=== PATIENT | female | born 2005 | race Caucasian/White ===

== ENCOUNTER 2024-03-18 15:46 | Emergency (ER) | payer OTHER, SELFPAY ==
[2024-03-18] VITALS (8 sets, daily range): BP systolic 103–134; BP diastolic 56–69; PULSE 70–106; RESP 18; TEMP 37.3; O2SAT 98–100; BMI 25.7
[2024-03-18 16:33] LABS: Add Manual Diff / Slide Review NO; Basophils Absolute Auto 0 /uL (0-100); Basophils Percent Auto 0.3 % (0-2); Eosinophils Absolute Auto 100 /uL (0-450); Eosinophils Percent Auto 1.5 % (2-4); Hematocrit 43.1 % (36-46); Hemoglobin 14.9 g/dL (12.0-16.0); Lymphocytes Absolute Auto 2200 /uL (1100-4500); Lymphocytes Percent Auto 26.2 % (25-40); Mean Corpuscular HGB Conc 34.4 % (30-36); Mean Corpuscular Hemoglobin 31.3 PG (26-34); Monocytes Absolute Auto 600 /uL (0-900); Monocytes Percent Auto 7.7 % (3-14); Neutrophils Absolute Auto 5300 /uL (1500-7000); Neutrophils Percent Auto 64.3 % (50-75); Platelet Count 213 X10^3/uL (150-400); Red Blood Cell Count 4.74 X10^6/uL (4.0-5.2); Red Cell Distribution Width 12.4 % (11.6-14.8); White Blood Cell Count 8.3 X10^3/uL (4.5-11.0)
[2024-03-18 16:45] LABS: Ammonia (NH3) < 9 umol/L (9-30)
[2024-03-18 16:46] LABS: Alanine Aminotransferase 21 IU/L (<35); Albumin 4.7 g/dL (3.5-5.0); Albumin Globulin Ratio 1.5 (1.0-2.8); Alkaline Phosphatase 68 U/L (38-126); Aspartate Aminotransferase 26 IU/L (14-36); BUN Creatinine Ratio 11.6 (6-22); Bilirubin Total 0.9 mg/dL (0.2-1.3); Blood Urea Nitrogen 8 mg/dL (7-17); Calcium 9.2 mg/dL (8.4-10.2); Carbon Dioxide 22 mmol/L (22-32); Chloride 106 mmol/L (98-107); Estimated Glomerular Filt Rate > 60 mL/min (>60); Globulin 3.1 g/dL (1.7-4.1); Glucose 90 mg/dL (70-100); HEMOLYSIS < 15 (0-50); Lipase 40 U/L (23-300); Potassium 3.6 mmol/L (3.4-5.1); Sodium 137 mmol/L (137-145); Total Protein 7.8 g/dL (6.3-8.2)
[2024-03-18 17:07] LABS: Bacteria Urine Many (>30); RBC Urine 0-1/HPF (0-5/HPF); Squamous Epithelial Cell Urine 5-10 /HPF (0-5/HPF); Urine Volume 10mL (spun); WBC Urine 10-30/HPF (0-5/HPF)
--- NOTE | 2024-03-18 21:00 | ED_ITS ---
HPI - Abdominal Pain General Chief Complaint: Abdominal Pain Stated Complaint: abd px, UTI sent by [facility] Time Seen by Provider: 03/18/24 20:52 Source: patient Mode of arrival: Ambulatory History of Present Illness HPI narrative: 18-year-old female with a history of hypothyroidism presenting with right lower quadrant abdominal pain. She had been symptomatic for about 10 hours. Pain was actually more severe at the beginning and now has now almost gone. She has not had nausea or vomiting and she has not anorexic at present. The patient does not have any urinary symptoms. She has irregular periods and has an IUD in place. There is no previous abdominal surgeries no history of previous similar symptoms. Related Data Allergies Allergy/AdvReac Type Severity Reaction Status Date / Time No Known Drug Allergies Allergy Verified 03/18/24 15:54 Patient History Social History Smoking Status: Never smoker Smoking Status: Never smoker alcohol intake frequency: holidays/special occasions only Substance Use Type: does not use Exam Narrative Exam Narrative: Well-appearing. Heart rate mildly tachycardic at 106 with a normal blood pressure and not febrile. Her oral mucosa is moist neck is supple respiratory effort is normal. L rebound no CVAT Normal bowel sounds abdomen is soft mild very minimal right lower quadrant tenderness, no CVAT Initial Vital Signs Initial Vital Signs: Vital Signs Temperature 99.1 F 03/18/24 15:54 Pulse Rate 106 H 03/18/24 15:54 Respiratory Rate 18 03/18/24 15:54 Blood Pressure 128/69 03/18/24 15:54 Pulse Oximetry 98 03/18/24 15:54 Oxygen Delivery Method Room Air 03/18/24 15:54 Course Orders Ordered: ED Orders 03/18/24 16:08 Urine Culture Stat Urine Microscopic Stat 03/18/24 16:10 Ammonia (NH3) Stat Complete Blood Count AUTO DIFF Stat Comprehensive Metabolic Panel Stat Lipase Stat 03/18/24 20:59 US abdomen limited Stat Vital Signs Vital signs: Vital Signs - 8 hr 03/18/24 20:15 03/18/24 20:48 03/18/24 20:51 Pulse Rate 80 106 H Respiratory Rate 18 Blood Pressure 111/60 113/67 Pulse Oximetry 99 100 Oxygen Delivery Method Room Air 03/18/24 20:51 03/18/24 21:00 03/18/24 21:00 Pulse Rate 95 H 81 Respiratory Rate Blood Pressure 119/63 Pulse Oximetry 100 100 Oxygen Delivery Method Room Air 03/18/24 21:30 03/18/24 21:30 03/18/24 22:00 Pulse Rate 84 70 Respiratory Rate Blood Pressure 134/63 Pulse Oximetry 100 100 Oxygen Delivery Method Room Air 03/18/24 22:00 03/18/24 22:30 03/18/24 22:30 Pulse Rate 74 Respiratory Rate 18 Blood Pressure 103/56 L 106/57 L Pulse Oximetry 100 Oxygen Delivery Method Room Air MDM - Abdominal Pain Lab Data Lab results narrative: UA shows positive leukocyte esterase, macro with pyuria bacteriuria but squamous cells are present. CBC with diff and CMP are normal 03/18/24 16:10 03/18/24 16:10 Labs: Lab Results 03/18/24 03/18/24 Range/Units 16:08 16:10 WBC 8.3 (4.5-11.0) X10^3/uL RBC 4.74 (4.0-5.2) X10^6/uL Hgb 14.9 (12.0-16.0) g/dL Hct 43.1 (36-46) % MCV 91.0 (80-100) fL MCH 31.3 (26-34) PG MCHC 34.4 (30-36) % RDW 12.4 (11.6-14.8) % Plt Count 213 (150-400) X10^3/uL Neut % (Auto) 64.3 (50-75) % Lymph % (Auto) 26.2 (25-40) % [place] % (Auto) 7.7 (3-14) % Eos % (Auto) 1.5 L (2-4) % Baso % (Auto) 0.3 (0-2) % Neut # (Auto) 5300 (8784-2928) /uL Lymph # (Auto) 2200 (8959-9731) /uL [place] # (Auto) 600 (0-900) /uL Eos # (Auto) 100 (0-450) /uL Baso # (Auto) 0 (0-100) /uL Sodium 137 (137-145) mmol/L Potassium 3.6 (3.4-5.1) mmol/L Chloride 106 (98-107) mmol/L Carbon Dioxide 22 (22-32) mmol/L BUN 8 (7-17) mg/dL Creatinine 0.69 (0.52-1.04) mg/dL Estimated GFR > 60 (>60) mL/min BUN/Creatinine Ratio 11.6 (6-22) Glucose 90 (70-100) mg/dL Calcium 9.2 (8.4-10.2) mg/dL Total Bilirubin 0.9 (0.2-1.3) mg/dL AST 26 (14-36) IU/L ALT 21 (<35) IU/L Alkaline Phosphatase 68 (38-126) U/L Ammonia < 9 L (9-30) umol/L Total Protein 7.8 (6.3-8.2) g/dL Albumin 4.7 (3.5-5.0) g/dL Globulin 3.1 (1.7-4.1) g/dL Albumin/Globulin Ratio 1.5 (1.0-2.8) Lipase 40 (23-300) U/L Urine RBC 0-1/hpf (0-5/HPF) Urine WBC 10-30/hpf H (0-5/HPF) Ur Squamous Epith Cells 5-10 /hpf H (0-5/HPF) Urine Bacteria Many (>30) H (None) Vol Urine Centrifuged 10ml (spun) Point of care testing: Point of Care Testing Test Results Negative Urine Dip Bedside Urine Glucose Negative Bedside Urine Bilirubin - Negative Bedside Urine Ketone +/- 5 Bedside Urine Occult Blood - Negative Bedside Urine pH 8.5 Bedside Urine Protein - Negative Bedside Urine Urobilinogen +/- 1mg Bedside Urine Nitrite - Negative Bedside Urine Leukocytes ++ 125 Esterase Imaging Data US - abdomen: Radiologist's Impression: Patient: Yomaira Corbin MR#: [id number] : 2005 Acct:[id number] Age/Sex: 18 / F Date of Service: 03/18/24 Loc: ED Accession Number: [id number] Procedure: US abdomen limited Ordering Provider: Joseph Valles MD PROCEDURE: US ABDOMEN LIMITED INDICATIONS: rlw pain appendicits suspecteded TECHNIQUE: Real-time focused scanning was performed of the abdomen with attention to the appendix, with image documentation. COMPARISON: None. FINDINGS: Appendix visualization: Not visualized Associated findings: Nearby free fluid: Absent Lymphadenopathy: Absent Tenderness on exam: Absent IMPRESSION: Appendix not seen. No secondary signs of acute appendicitis. Dictated by: Nadir Flores M.D. on 03/18/2024 at 21:37 Approved by: Nadir Flores M.D. on 03/18/2024 at 21:37 [facility] Narrative Medical decision making narrative: 18-year-old female with right lower quadrant abdominal pain. Differential diagnosis includes gynecologic problems, appendicitis, pyelonephritis or cystitis. She has not anorexic your pain is improving and her abdomen is not very tender. I do not think this is appendicitis. Ultrasound supports this. Had some urinary findings to suggest UTI but she has not symptomatic. She has not and given that her pain is improving I do not think this is an ovarian torsion. I think it is safe to discharge her on symptomatic care with follow up precautions Discharge Plan Departure Patient Disposition: Home Clinical Impression: Abdominal pain, acute, right lower quadrant Activity Restrictions/Additional Instructions: Emergency department evaluation today is reassuring. At this point with a negative ultrasound I think it is unlikely that you have appendicitis. Workup is otherwise reassuring. I think it is safe to go home, you can use ibuprofen and/or Tylenol as needed for mild pain usual [id number] doses. If you are having increasing pain fevers or vomiting or recheck in the emergency department. Referrals: Provider,Domenic BARRETT [Primary Care Provider] - Stand Alone Forms: Patient Portal/API
== END 2024-03-18 22:38 | disposition home or self-care (01) ==
PROVIDERS: Emergency Medicine; Emergency Provider Emergency Medicine
DX: R10.31 Right lower quadrant pain (principal); R00.0 Tachycardia, unspecified
CPT/HCPCS: 36415; 76705; 80053; 81003; 81015; 81025; 82140; 83690; 85025; 87086; 99283; 99284